=== PATIENT | male | born 1965 | race Caucasian/White ===

== ENCOUNTER → 2023-05-06 16:32 | Outpatient (CLI) | payer OTHER, SELFPAY ==
--- NOTE | 2023-05-06 16:37 | DI.MRI.S_ITS ---
PROCEDURE: MR SHOULDER LT WO CON INDICATIONS: Shoulder pain, rotator cuff TECHNIQUE: Noncontrast oblique coronal T2 fast spin echo with fat saturation, oblique sagittal T1 spin echo and T2 fast spin echo with fat saturation, axial T1 spin echo and T2 fast spin echo with fat saturation through the shoulder. COMPARISON: None. FINDINGS: Image quality: Excellent. Rotator cuff: Moderate grade articular surface partial-thickness tear involving distal supraspinatus at its insertion on the humeral head is seen extending to musculotendinous junction. Low-grade bursal surface partial thickness tear involving supraspinatus near musculotendinous junction is also seen. Low-grade articular surface partial-thickness tear is seen involving distal infraspinatus at its insertion on the humeral head. Low-grade intrasubstance partial-thickness tear involving distal subscapularis. No full-thickness rotator cuff tendon rupture. Sagittal images demonstrate no significant rotator cuff muscle atrophy. Bones and bursae: No bone marrow contusions or fractures. Moderate acromioclavicular joint osteoarthritic changes are seen with joint space narrowing and downward osteophyte formation depressing the musculotendinous junction of supraspinatus. The acromion demonstrates conventional anatomy, without an os acromiale. Small amount of subacromial subdeltoid bursal fluid is seen, no gross loose bodies. Capsule and soft tissues: Labrum is grossly intact. The long head of the biceps tendon appears thickened with intrasubstance T2 hyperintense signal at the level of humeral head. The rotator interval appears normal, without fibrosis. The coracohumeral ligament is normal in thickness. IMPRESSION: 1. Moderate grade articular and bursal surface partial thickness tear involving distal supraspinatus extending to musculotendinous junction. Low-grade articular surface partial-thickness tear involving distal infraspinatus. Low-grade intrasubstance partial-thickness tear involving distal subscapularis. No full-thickness rotator cuff tendon rupture. No significant rotator cuff muscle atrophy. 2. Moderate acromioclavicular joint osteoarthritis. No acute fracture or dislocation. Small to moderate amount of subacromial subdeltoid bursal fluid. No gross loose bodies. 3. No definite focal labral tear. 4. Tendinosis and low-grade intrasubstance partial-thickness tear involving proximal long head of biceps. Dictated by: Fidel Clancy M.D. on 05/07/2023 at 11:13 Approved by: Fidel Clancy M.D. on 05/07/2023 at 11:18
== END ==
PROVIDERS: Referring Provider Preventive Medicine Occupational Medicine; Visit Provider Preventive Medicine Occupational Medicine
DX: M75.112 Incomplete rotator cuff tear or rupture of left shoulder, not specified as traumatic (principal); M19.012 Primary osteoarthritis, left shoulder; S46.112A Strain of muscle, fascia and tendon of long head of biceps, left arm, initial encounter
CPT/HCPCS: 73221